=== PATIENT | male | born 1960 | race Caucasian/White ===

== ENCOUNTER 2017-03-25 09:53 | Emergency (ER) | payer OTHER ==
[~2017-03-25] VITALS: Ht 175.3 cm; Wt 101.6 kg
[2017-03-25 10:36] LABS: BASOPHIL % 0.3 % (0-2); PLATELET COUNT 205 x10^3mcL (130-400); RED CELL DISTRIBUTION WIDTH 14.3 % (11.5-14.5)
[2017-03-25 10:46] LABS: CALCIUM 7.8 mg/dL (8.5-10.1); CARBON DIOXIDE 20.4 mmol/L (21-32); CHLORIDE SERUM 98 mmol/L (98-107); GFR1 > 60 mL/min; GLUCOSE SERUM 346 mg/dL (74-106); POTASSIUM SERUM 4.1 mmol/L (3.5-5.1); SODIUM SERUM 131 mmol/L (136-145)
[2017-03-25 10:51] LABS: ALBUMIN 3.4 g/dL (3.4-5.0); ALKALINE PHOSPHATASE 65 U/L (46-116); ALT/SGPT 45 U/L (16-63); AST/SGOT 29 U/L (15-37); BILIRUBIN TOTAL 0.65 mg/dL (0.20-1.00); TOTAL PROTEIN, SERUM 7.1 g/dL (6.4-8.2)
[2017-03-25 12:30] VITALS: BP 111/78
== END 2017-03-25 12:28 | disposition home or self-care (01) ==
LOC: ED 09:53
PROVIDERS: Emergency Medicine
DX: K29.00 Acute gastritis without bleeding (principal); E86.0 Dehydration; E11.9 Type 2 diabetes mellitus without complications; R06.6 Hiccough; Z79.84 Long term (current) use of oral hypoglycemic drugs
CPT/HCPCS: J1815; J2405; J3010; J3230; J7030

== ENCOUNTER 2017-07-14 07:11 | Inpatient (IN) | payer OTHER ==
[~2017-07-14] VITALS: Ht 175.3 cm; Wt 101.2 kg
[2017-07-14 07:50] LABS: microscopic required? NO
[2017-07-14 07:59] LABS: urine erythrocyte NEGATIVE (NEGATIVE)
[2017-07-14 08:01] LABS: CALCIUM 8.6 mg/dL (8.5-10.1); CARBON DIOXIDE 24.4 mmol/L (21-32); CHLORIDE SERUM 101 mmol/L (98-107); CREATININE SERUM 0.9 mg/dL (0.7-1.3); GFR1 > 60 mL/min; GLUCOSE SERUM 376 mg/dL (74-106); POTASSIUM SERUM 4.1 mmol/L (3.5-5.1); SODIUM SERUM 134 mmol/L (136-145)
[2017-07-14] MEDS ORDERED: TRULICITY1.5 MG/0.5 SC (08:03)
[2017-07-14] MEDS ORDERED: TOUJEO300 U/ML SC (08:03)
[2017-07-14 08:06] LABS: ALBUMIN 3.5 g/dL (3.4-5.0); ALKALINE PHOSPHATASE 75 U/L (46-116); ALT/SGPT 66 U/L (16-63); AST/SGOT 32 U/L (15-37); BILIRUBIN TOTAL 0.4 mg/dL (0.20-1.00); TOTAL PROTEIN, SERUM 7.3 g/dL (6.4-8.2)
[2017-07-14 08:29] LABS: BASOPHIL % 0.5 % (0-2); PLATELET COUNT 220 x10^3mcL (130-400); RED CELL DISTRIBUTION WIDTH 14.2 % (11.5-14.5)
[2017-07-14 12:57] VITALS: BP 112/62
[2017-07-14 14:32] LABS: AMPHETAMINE QUAL UR NONE DETECTED (NEG <=1000)
[2017-07-14 17:29] VITALS: BP 101/55
[2017-07-14] MEDS ORDERED: LANTUS SOLOS100 U/M1 SC (17:58)
[2017-07-14] MEDS ORDERED: NOVI (17:59)
[2017-07-14 19:32] VITALS: BP 101/55
== END 2017-07-14 20:52 | disposition home or self-care (01) | DRG 58 ==
LOC: ED 07:11 → MU 08:29
PROVIDERS: Emergency Medicine; ADMIT Internal Medicine
DX: R20.9 Unspecified disturbances of skin sensation (principal); E11.9 Type 2 diabetes mellitus without complications; E78.5 Hyperlipidemia, unspecified; Z79.4 Long term (current) use of insulin; E66.9 Obesity, unspecified; T50.995A Adverse effect of other drugs, medicaments and biological substances, initial encounter
CPT/HCPCS: 83880; J1200; J2405; J7030; Q0092

== ENCOUNTER 2020-04-17 15:01 | Emergency (ER) | payer OTHER ==
[~2020-04-17] VITALS: Ht 175.3 cm; Wt 92.5 kg
[~2020-04-17 15:01] MED LIST: LANTUS SOLOS100 U/M1 SC; NOVI; TOUJEO300 U/ML SC; TRULICITY1.5 MG/0.5 SC
[2020-04-17 15:21] VITALS: Ht 175.3 cm; Wt 92.5 kg
[2020-04-17 15:36] VITALS: BP 118/55
== END 2020-04-17 15:36 | disposition home or self-care (01) ==
LOC: ED 15:01
DX: R06.6 Hiccough (principal); E11.9 Type 2 diabetes mellitus without complications